=== PATIENT | female | born 1965 | race Caucasian/White ===

== ENCOUNTER 2016-04-01 16:04 | Emergency (ER) | payer BC, OTHER ==
--- NOTE | 2016-04-01 16:36 | ERRECORD ---
[facility] EMERGENCY RECORD HPI FLU-LIKE SYNDROME (16:23 [facility]) CHIEF COMPLAINT: Patient presents for evaluation of body aches, Patient presents for evaluation of fatigue, Patient presents for evaluation of fever, subjective, Patient presents for evaluation of upper respiratory infection. HISTORIAN: History provided by patient, 50F presents with complaints of four days of generalized body aches, fatigue, and a cough. Reports subjective fever. Denies chest pain, shortness of breath, abdominal pain, dysuria, back pain or headache. LOCATION: Symptoms are generalized. TIME COURSE: Gradual onset of symptoms, Symptoms are improving. ASSOCIATED WITH: Associated with cough. EXACERBATED BY: Patient's condition exacerbated by nothing. RELIEVED BY: Patient's condition relieved by cold fluids, Patient's condition relieved by over the counter medications. IMMUNIZATION STATUS: Flu vaccine not up to date. ROS (16:24 [facility]) CONSTITUTIONAL: Historian reports fatigue, reports fever, reports malaise. EYES: Negative eye review of systems, Historian denies eye pain, denies vision changes. ENT: Negative ears, nose, throat review of systems, Historian denies rhinorrhea, denies sore throat, denies voice changes. CARDIOVASCULAR: Negative cardiovascular review of systems, Historian denies chest pain, denies palpitations. RESPIRATORY: Historian reports cough, reports cough, Historian denies shortness of breath. GI: Negative gastrointestinal review of systems, Historian denies abdominal pain, denies constipation, denies diarrhea, denies nausea, denies vomiting. GENITOURINARY FEMALE: Negative genitourinary review of systems, Historian denies dysuria, denies frequency. MUSCULOSKELETAL: Negative musculoskeletal review of systems, Historian denies back pain, denies fall, denies injury. SKIN: Negative skin review of systems, Historian denies rash, denies skin changes. NEUROLOGIC: Negative neurologic review of systems, Historian denies headache, denies mental status changes, denies paralysis, denies paresthesias, denies sensory changes. HEMO/LYMPHATIC: Normal hematologic/lymphatic system review, Historian denies abnormal blood clotting. ALLERGIC/IMMUNOLOGIC: Normal allergy/immunologic system review, Historian denies frequent infections. PAST MEDICAL HISTORY (16:35 [facility]) MEDICAL HISTORY: No past medical history, Flu vaccine up to date. FEMALE SURGICAL HISTORY: Patient has no surgical history. &a-1R&a+25V*p+0X*j2488Z*c202B*c15G*c2P*p-0X&a-25V&a+1R Name: Dariusz Novak : 1965 F50 MedRec: [id number] AcctNum: [id number] Prepared: FriApr 01, 2016 16:45 by Interface Page 1 of 3 pMD [facility] EMERGENCY RECORD KNOWN ALLERGIES NKDA strawberries (Unconfirmed) CURRENT MEDICATIONS (16:38 [facility]) ALPRAZolam: TABLET : Strength - 0.25 mg : ORAL Patient Dose: unk. traZODone: TABLET : Strength - 50 mg : ORAL Patient Dose: unk. VITAL SIGNS (16:13 [facility]) VITAL SIGNS: BP: 131/71, Pulse: 61, Resp: 14, Temp: 98.6 (Oral), Pain: 0, O2 sat: 97 on Room Air, Time: 04/01/2016 16:13. PHYSICAL EXAM (16:24 [facility]) CONSTITUTIONAL: Vital signs reviewed, Patient afebrile, Pulse normal, Blood pressure normal, Respiratory rate normal, Patient appears non toxic, Patient appears pain free, Patient alert and oriented to person, place and time. HEAD: Head exam normal, Head exam included findings of head atraumatic, normocephalic. EYES: Eye exam normal, Eye exam included findings of eyelids normal to inspection, Pupils equally round and reactive to light, Extraocular muscles intact, no nystagmus. ENT: ENT exam normal, Ear exam normal, external ear normal, tympanic membranes normal, no bleeding, Pharynx exam normal, Uvula exam normal, Tonsil exam normal, Mouth exam normal, mucous membranes moist, teeth normal. NECK: Neck exam normal, Neck exam included findings of normal range of motion, Trachea midline, no meningeal signs, no cervical adenopathy, no tenderness. RESPIRATORY CHEST: Respiratory and chest exam normal, Respiratory exam included findings of no respiratory distress, Breath sounds clear. CARDIOVASCULAR: Cardiovascular assessment normal, Cardiovascular exam included findings of heart rate regular rate and rhythm, Heart sounds normal. ABDOMEN FEMALE: Abdominal exam included findings of abdomen nontender, Bowel sounds normal, no distension, no mass, no pulsatile masses, no peritoneal signs, no rigidity, no guarding, no rebound, Rovsing's sign absent. BACK: Back exam normal, Back exam included findings of normal inspection, range of motion normal, no tenderness. UPPER EXTREMITY: Upper extremity exam normal, Upper extremity exam included findings of inspection normal, Range of motion normal, Motor strength normal, Sensation intact, Radial pulse normal. LOWER EXTREMITY: Lower extremity exam normal, Lower extremity exam included findings of inspection normal, Range of motion normal, &a-1R&a+25V*p+0X*i1275C*c202B*c15G*c2P*p-0X&a-25V&a+1R Name: Dariusz Novak : 1965 F50 MedRec: [id number] AcctNum: [id number] Prepared: FriApr 01, 2016 16:45 by Interface Page 2 of 3 pMD [facility] EMERGENCY RECORD Motor strength normal, Sensation intact, Posterior tibial pulse normal, Pedal pulse normal. NEURO: Neuro exam normal, Neuro exam findings include patient oriented to person, place and time, Speech normal, Gait normal, Cranial nerves intact, no focal motor deficits, no focal sensory deficits. SKIN: Skin exam normal, Skin exam included findings of skin warm, dry, and normal in color, no rash. PSYCHIATRIC: Psychiatric exam normal, Normal affect. DOCTOR NOTES (16:25 [facility]) TEXT: Patient presented with signs and symptoms consistent with viral syndrome. well appearing, non-toxic patient without evidence of concerning bacterial illness such as meningitis or pneumonia that would require further workup or investigation. Tolerating oral intake without difficulty. Appropriate for outpatient management with oral fluids and antipyretics. Needs follow up with primary physician in the next 2-3 days for re-evaluation. PATIENT STATUS: Patient's status is unchanged since arrival to emergency department. PATIENT PLAN: The patient will be discharged, The patient will follow up with primary care physician. PROBLEM LIST No recorded problems DIAGNOSIS (16:21 [facility]) FINAL: PRIMARY: Viral infection. PRESCRIPTION No recorded prescriptions DISPOSITION PATIENT: Disposition Type: Discharge, Disposition: *Discharge Home. (16:21 [facility]) Patient left the department. (16:42 OO) Hahn: AHOO=HUGO Garcia, June [facility]=MD Georgie, Juan BLANCO=SHANTEL Lua, Theresa &a-1R&a+25V*p+0X*i2588X*c202B*c15G*c2P*p-0X&a-25V&a+1R Name: Dariusz Novak : 1965 F50 MedRec: [id number] AcctNum: [id number] Prepared: FriApr 01, 2016 16:45 by Interface Page 3 of 3 pMD MTDD
--- NOTE | 2016-04-01 16:43 | PICIS ---
[facility] EMERGENCY RECORD TRIAGE (FriApr 01, 2016 16:14 JSMI) PATIENT: NAME: Dariusz Novak, AGE: 50, GENDER: female, : Fri1965, TIME OF GREET: FriApr 01, 2016 16:05, PREFERRED LANGUAGE: Cymro, ETHNICITY: Not or , ECODE BILLING MAP: [facility], SSN: [id number], Zip Code: [address], KG WEIGHT: 79.38, PHONE: , , , PERSON ID: [id number], PCP: MD Lerma Kyle. (FriApr 01, 2016 16:14 JSMI) COMPLAINT: diarrhea, weakness. (FriApr 01, 2016 16:14 JSMI) ADMISSION: URGENCY: 4 Non Urgent, ADMISSION SOURCE: Doctor's Office, TRANSPORT: Walk-in, BED: ER -02. (FriApr 01, 2016 16:14 JSMI) ASSESSMENT: Assessment: PT PRESENTS AWAKE ALERT AND ORIENTED. SKIN PINK WARM AND DRY. (16:35 JSMI) SIRS SCORING: Heart Rate 55-109 (0), Temp range 96.8-101.1 (0), respiratory rate 12-24 (0), Mental Status altered: no (0), Infection or Suspected Infection: No. (16:35 JSMI) PROVIDERS: TRIAGE NURSE: Theresa Lua RN. (FriApr 01, 2016 16:14 JSMI) VITAL SIGNS: BP 131/71, Pulse 61, Resp 14, Temp 98.6, (Oral), Pain 0, O2 Sat 97, on Room Air, Time 04/01/2016 16:13. (16:13 JSMI) PREVIOUS VISIT ALLERGIES: NKDA, strawberries. (FriApr 01, 2016 16:14 JSMI) NKDA, strawberries. (16:35 JSMI) KNOWN ALLERGIES NKDA strawberries (Unconfirmed) CURRENT MEDICATIONS (16:38 JSMI) ALPRAZolam: TABLET : Strength - 0.25 mg : ORAL Patient Dose: unk. traZODone: TABLET : Strength - 50 mg : ORAL Patient Dose: unk. VITAL SIGNS (16:13 JSMI) VITAL SIGNS: BP: 131/71, Pulse: 61, Resp: 14, Temp: 98.6 (Oral), Pain: 0, O2 sat: 97 on Room Air, Time: 04/01/2016 16:13. NURSING PROCEDURE: DISCHARGE NOTE (16:28 [facility]) DISCHARGE: Patient discharged to home, ambulating without assistance, driving self, unaccompanied, Summary of Care printed/ provided, Transition record given to patient, Discharge instructions given to patient, Above person(s) verbalized understanding of discharge instructions and follow-up care, Patient treated and evaluated by physician. HPI FLU-LIKE SYNDROME (16:23 [facility]) &a-1R&a+25V*p+0X*e9575W*c202B*c15G*c2P*p-0X&a-25V&a+1R Name: Dariusz Novak : 1965 F50 MedRec: [id number] AcctNum: [id number] Prepared: FriApr 01, 2016 16:52 by Interface Page 1 of 4 pMD [facility] EMERGENCY RECORD CHIEF COMPLAINT: Patient presents for evaluation of body aches, Patient presents for evaluation of fatigue, Patient presents for evaluation of fever, subjective, Patient presents for evaluation of upper respiratory infection. HISTORIAN: History provided by patient, 50F presents with complaints of four days of generalized body aches, fatigue, and a cough. Reports subjective fever. Denies chest pain, shortness of breath, abdominal pain, dysuria, back pain or headache. LOCATION: Symptoms are generalized. TIME COURSE: Gradual onset of symptoms, Symptoms are improving. ASSOCIATED WITH: Associated with cough. EXACERBATED BY: Patient's condition exacerbated by nothing. RELIEVED BY: Patient's condition relieved by cold fluids, Patient's condition relieved by over the counter medications. IMMUNIZATION STATUS: Flu vaccine not up to date. ROS (16:24 [facility]) CONSTITUTIONAL: Historian reports fatigue, reports fever, reports malaise. EYES: Negative eye review of systems, Historian denies eye pain, denies vision changes. ENT: Negative ears, nose, throat review of systems, Historian denies rhinorrhea, denies sore throat, denies voice changes. CARDIOVASCULAR: Negative cardiovascular review of systems, Historian denies chest pain, denies palpitations. RESPIRATORY: Historian reports cough, reports cough, Historian denies shortness of breath. GI: Negative gastrointestinal review of systems, Historian denies abdominal pain, denies constipation, denies diarrhea, denies nausea, denies vomiting. GENITOURINARY FEMALE: Negative genitourinary review of systems, Historian denies dysuria, denies frequency. MUSCULOSKELETAL: Negative musculoskeletal review of systems, Historian denies back pain, denies fall, denies injury. SKIN: Negative skin review of systems, Historian denies rash, denies skin changes. NEUROLOGIC: Negative neurologic review of systems, Historian denies headache, denies mental status changes, denies paralysis, denies paresthesias, denies sensory changes. HEMO/LYMPHATIC: Normal hematologic/lymphatic system review, Historian denies abnormal blood clotting. ALLERGIC/IMMUNOLOGIC: Normal allergy/immunologic system review, Historian denies frequent infections. PAST MEDICAL HISTORY (16:35 [facility]) MEDICAL HISTORY: No past medical history, Flu vaccine up to date. FEMALE SURGICAL HISTORY: Patient has no surgical history. PHYSICAL EXAM (16:24 [facility]) &a-1R&a+25V*p+0X*h1321T*c202B*c15G*c2P*p-0X&a-25V&a+1R Name: Dariusz Novak : 1965 F50 MedRec: [id number] AcctNum: [id number] Prepared: FriApr 01, 2016 16:52 by Interface Page 2 of 4 pMD [facility] EMERGENCY RECORD CONSTITUTIONAL: Vital signs reviewed, Patient afebrile, Pulse normal, Blood pressure normal, Respiratory rate normal, Patient appears non toxic, Patient appears pain free, Patient alert and oriented to person, place and time. HEAD: Head exam normal, Head exam included findings of head atraumatic, normocephalic. EYES: Eye exam normal, Eye exam included findings of eyelids normal to inspection, Pupils equally round and reactive to light, Extraocular muscles intact, no nystagmus. ENT: ENT exam normal, Ear exam normal, external ear normal, tympanic membranes normal, no bleeding, Pharynx exam normal, Uvula exam normal, Tonsil exam normal, Mouth exam normal, mucous membranes moist, teeth normal. NECK: Neck exam normal, Neck exam included findings of normal range of motion, Trachea midline, no meningeal signs, no cervical adenopathy, no tenderness. RESPIRATORY CHEST: Respiratory and chest exam normal, Respiratory exam included findings of no respiratory distress, Breath sounds clear. CARDIOVASCULAR: Cardiovascular assessment normal, Cardiovascular exam included findings of heart rate regular rate and rhythm, Heart sounds normal. ABDOMEN FEMALE: Abdominal exam included findings of abdomen nontender, Bowel sounds normal, no distension, no mass, no pulsatile masses, no peritoneal signs, no rigidity, no guarding, no rebound, Rovsing's sign absent. BACK: Back exam normal, Back exam included findings of normal inspection, range of motion normal, no tenderness. UPPER EXTREMITY: Upper extremity exam normal, Upper extremity exam included findings of inspection normal, Range of motion normal, Motor strength normal, Sensation intact, Radial pulse normal. LOWER EXTREMITY: Lower extremity exam normal, Lower extremity exam included findings of inspection normal, Range of motion normal, Motor strength normal, Sensation intact, Posterior tibial pulse normal, Pedal pulse normal. NEURO: Neuro exam normal, Neuro exam findings include patient oriented to person, place and time, Speech normal, Gait normal, Cranial nerves intact, no focal motor deficits, no focal sensory deficits. SKIN: Skin exam normal, Skin exam included findings of skin warm, dry, and normal in color, no rash. PSYCHIATRIC: Psychiatric exam normal, Normal affect. EVENTS TRANSFER: Triage to Emergency Emergency Room -02. (16:14 [facility]) Removed from Emergency Emergency Room -02. (16:42 [facility]) DOCTOR NOTES (16:25 [facility]) TEXT: Patient presented with signs and symptoms consistent with viral syndrome. well appearing, non-toxic patient without &a-1R&a+25V*p+0X*m3358S*c202B*c15G*c2P*p-0X&a-25V&a+1R Name: Dariusz Novak : 1965 F50 MedRec: [id number] AcctNum: [id number] Prepared: FriApr 01, 2016 16:52 by Interface Page 3 of 4 pMD [facility] EMERGENCY RECORD evidence of concerning bacterial illness such as meningitis or pneumonia that would require further workup or investigation. Tolerating oral intake without difficulty. Appropriate for outpatient management with oral fluids and antipyretics. Needs follow up with primary physician in the next 2-3 days for re-evaluation. PATIENT STATUS: Patient's status is unchanged since arrival to emergency department. PATIENT PLAN: The patient will be discharged, The patient will follow up with primary care physician. PROBLEM LIST No recorded problems DIAGNOSIS (16:21 [facility]) FINAL: PRIMARY: Viral infection. DISPOSITION PATIENT: Disposition Type: Discharge, Disposition: *Discharge Home. (16:21 [facility]) Patient left the department. (16:42 OO) INSTRUCTION (16:22 [facility]) DISCHARGE: INFLUENZA (ADULT). [facility] [address] [place] [address], . SPECIAL: Follow up with Dr. Lerma if you do not start feeling better. Make sure you're drinking enough fluids. Return to the ED if your symptoms get worse. PRESCRIPTION No recorded prescriptions IMAGING (16:39 [facility]) *DISCHARGE INSTRUCTIONS RECEIPT: Image captured from scanner. *SUPPLY CHARGE SHEET: Image captured from scanner. ADMIN (16:26 [facility]) DIGITAL SIGNATURE: MD Jacques Jason. Hahn: [facility]=HUGO Garcia, June [facility]=MD Jacques Jason JSMI=SHANTEL Lua, Theresa &a-1R&a+25V*p+0X*t5479V*c202B*c15G*c2P*p-0X&a-25V&a+1R Name: Dariusz Novak : 1965 F50 MedRec: [id number] AcctNum: [id number] Prepared: FriApr 01, 2016 16:52 by Interface Page 4 of 4 pMD MTDD
== END 2016-04-01 16:28 | disposition home or self-care (01) ==
LOC: BURERS 16:04
DX: B34.9 Viral infection, unspecified (principal)
CPT/HCPCS: 99283

== ENCOUNTER 2016-06-13 16:29 | Outpatient (CLI) | payer BC | END 2016-06-13 16:30 | disposition home or self-care (01) | LOC: HPCALD 16:29 | PROVIDERS: ATTEND Family Medicine | DX: N39.0 Urinary tract infection, site not specified (principal) | CPT/HCPCS: 87086 ==

== ENCOUNTER 2016-07-01 16:17 | Outpatient (CLI) | payer BC ==
[2016-07-01 16:53] LABS: #Basophils 0.1 thou/uL (0.0-0.2); #Eosinphils 0.1 thou/uL (0.0-0.7); #Lymphocytes 2.2 thou/uL (1.20-3.40); #Monocytes 0.5 thou/uL (0.11-0.59); #Neutrophils 5.3 thou/uL (1.40-6.50); %Basophils 1.3 % (0.0-1.0); %Eosinophils 1.3 % (0.0-10.0); %Lymphocytes 26.9 % (21.0-51.0); %Monocytes 6.3 % (0.0-10.0); %Neutrophils 64.3 % (42.0-75.0); Hemoglobin 14.3 g/dL (12.0-16.0); Mean Corpuscular HGB CONC 34.3 g/dL (32.0-36.0); Mean Corpuscular Hemoglobin 32.7 pg (27.0-31.0); Mean Corpuscular Volume 95.3 fl (81.0-99.0); Mean Platelet Volume 9.6 fL (7.4-10.4); Platelet Count 223 thou/uL (130-400); Red Blood Cell (RBC) Count 4.37 mill/uL (4.20-5.40); White Blood Cell (WBC) Count 8.3 thou/uL (4.8-10.8)
[2016-07-01 17:03] LABS: Hemoglobin A1c 4.9 % (4.0-6.0)
[2016-07-01 17:11] LABS: ALT (SGPT) 12 U/L (0-55); AST (SGOT) 16 U/L (5-34); Albumin 4.2 g/dL (3.5-5.0); Alkaline Phosphatase 83 U/L (40-150); Anion Gap 14 mmol/L (10-20); BUN (Urea Nitrogen) 10 mg/dL (7.0-18.7); Bilirubin, Total 0.5 mg/dL (0.2-1.2); Calc. Creatinine Clearance 0 mL/min (70-130); Calcium 9.2 mg/dL (7.8-10.44); Carbon Dioxide 23 mmol/L (22-29); Cardiac Risk 4.7 (Less than 4.5); Chloride 106 mmol/L (98-107); Cholesterol 198 mg/dL (< 200 Desired); Estimated GFR-MDRD 73; Globulin 2.4 g/dL (2.4-3.5); Glucose 80 mg/dL (70-105); HDL Cholesterol 42 mg/dL (>60 Neg Risk); LDL Cholesterol, Calculated 114 mg/dL; Potassium 4.1 mmol/L (3.5-5.1); Protein, Total 6.6 g/dL (6.0-8.3); Sodium 139 mmol/L (136-145); Triglycerides 211 mg/dL (Less than 150)
== END 2016-07-01 16:18 | disposition home or self-care (01) ==
LOC: HPCALD 16:17
PROVIDERS: ATTEND Family Medicine
DX: N39.0 Urinary tract infection, site not specified (principal)
CPT/HCPCS: 36415; 80053; 80061; 83036; 84443; 85025; 87086

== ENCOUNTER 2016-09-12 09:09 | Outpatient (CLI) | payer BC | END 2016-09-12 09:10 | disposition home or self-care (01) | LOC: HPCALD 09:09 | PROVIDERS: ATTEND Family Medicine | DX: N39.0 Urinary tract infection, site not specified (principal) | CPT/HCPCS: 87077; 87086; 87186 ==